=== PATIENT | female | born 1980 | race Caucasian/White ===

== ENCOUNTER 2023-10-23 20:51 | Emergency (ER) | payer OTHER, SELFPAY ==
[2023-10-23 20:51] VITALS: BMI 26.3
[2023-10-23 20:58] VITALS: BP 154/113
[2023-10-23 21:32] VITALS: BP 132/97
[2023-10-23] MEDS: NSS 1000 IV (21:46)
[2023-10-23 21:52] LABS: Hematocrit 40.1 % (37.0-47.0); Hemoglobin 14.5 g/dL (12.0-16.0); Mean Corp Hgb Conc. 36.2 g/dL (33.0-37.0); Mean Corpuscular Hgb 32.1 pg (27.0-31.0); Mean Corpuscular Volume 88.7 fL (81.0-99.0); Mean Platelet Volume 9.3 fL (7.4-10.4); Platelet Count 233 10^3/uL (130-400); Red Blood Cell Count 4.52 10^6/uL (4.20-5.40); Red Cell Dist. Width 13.8 % (11.5-14.5); White Blood Cell Count 7.8 10^3/uL (4.8-10.8)
[2023-10-23 22:03] LABS: HCG, Serum Qualitative Screen Negative
[2023-10-23 22:10] LABS: ALT (SGPT) 26 U/L (0-35); AST (SGOT) 46 U/L (14-36); Alkaline Phosphatase 82 U/L (38-126); Blood Urea Nitrogen 16 mg/dl (7-17); Calcium 8.9 mg/dl (8.4-10.2); Carbon Dioxide 25 mmol/L (22-30); Chloride 101 mmol/L (98-107); Glucose 110 mg/dl (70-99); Magnesium 1.8 mg/dl (1.6-2.3); Potassium 3.4 mmol/L (3.5-5.1); Sodium 141 mmol/L (135-145); Total Bilirubin 0.8 mg/dl (0.2-1.3); Total Protein 6.7 g/dl (6.3-8.2); eGFR > 60.00
[2023-10-23 22:27] LABS: Alcohol 347 mg/dl
--- NOTE | 2023-10-23 23:33 | ED.GENMED ---
History of Present Illness
General
Chief Complaint: Alcohol Problem
Source: patient
Exam Limitations: none
Time Seen by Provider: 10/23/23 21:14
Nursing documentation reviewed up to this point in time: agreed with
Travel History
Have you had any contact with someone who has COVID-19?: No
Do you have any symptoms of coronavirus? Fever > 100 degrees, chills, cough, shortness of breath, sore throat, loss of taste or smell, muscle aches, or headache?: No
History of Present Illness
History of Present Illness:
Patient presents to ED requesting evaluation for alcohol detox. Patient admits to having increased amount of alcohol consumption recently, including this afternoon. Denies suicidal or homicidal ideation. Denies abdominal pain. Denies nausea or
vomiting. Denies fever or chills. Denies recent illness.
Past History
Past History
ED Past Medical History: HTN and Psychiatric (Anxiety)
ED Past Surgical History: Other (Breast reduction)
Patient has exhibited threatening behavior?: No
Social History
Tobacco: Smoker
Alcohol: Chronic alcoholic (Vodka a pint)
Drug: None
Personal:
Living: with family
Employment: Employed
Review of Systems
Review of Systems
Allergies reviewed?: Yes
All Other Systems: ROS reviewed and negative except as documented in HPI and ROS
Constitutional: Reports no symptoms
EENT: Reports no symptoms
Respiratory: Reports no symptoms
Cardiac: Reports no symptoms
ABD/GI: Reports no symptoms; Denies nausea or vomiting
Musculoskeletal: Reports no symptoms
Skin: Reports no symptoms
Neurological: Reports no symptoms
Phy Exam
Physical Exam
Physical Exam:
Physical Exam
General: no apparent distress, not acutely ill. afebrile
Head: nc/at. eomi
Neck: supple. no meningeal signs.
Heart: tachycardic, no murmur. equal radial pulses.
Lungs: no acute respiratory distress. clear bilaterally
Abdomen: normal bowel sounds. not tender.
Neuro: alert and oriented. no focal neurological deficits
Skin: no rash
Psychiatric: well kept. interactive and cooperative
Extremities: no edema. no calf tenderness.
Scores
Withdrawal Assessment of Alcohol
Withdrawal Assessment Completed?: Yes
Nausea and Vomiting: No nausea and no vomiting
Tactile Disturbances: None
Tremor: No tremor
Auditory Disturbances: Not present
Paroxysmal Sweats: No sweat visible
Visual Disturbances: Not present
Anxiety: No anxiety, at ease
Headache, Fullness in Head: Not present
Agitation: Normal activity
Orientation and clouding of sensorium: Oriented and can do serial additions
Total CIWA Score: 0
Alcohol Withdrawal Medication Recommendation: Equal to MSAS Score 0-4. Monitor & re-assess q2hrs, NO MEDICATION NEEDED
Course
Orders/Labs/Results
Orders:
Orders
10/23/23 21:18
0.9% Sodium Chloride 1000 ml [Nss] 1,000 ml IV BOLUS
Test Result ONCE
10/23/23 21:41
Alcohol Urgent
Complete Blood Count/No Diff Urgent
Comprehensive Metabolic Panel Urgent
HCG, Serum Qualitative Screen Urgent
Magnesium Urgent
10/23/23 22:53
Potassium Chloride [KCl] 40 meq PO NOW STA
10/23/23 23:35
Lorazepam [Ativan] 1 mg .ROUTE .STK-MED ONE
10/23/23 23:36
Lorazepam [Ativan] 1 mg PO NOW STA
Abnormal Lab Results
10/23/23
21:41
MCH 32.1 H pg
(27.0-31.0)
Potassium 3.4 L mmol/L
(3.5-5.1)
Creatinine 0.5 L mg/dL
(0.6-1.0)
Glucose 110 H mg/dl
(70-99)
AST 46 H U/L
(14-36)
10/23/23 21:41
10/23/23 21:41
Vital Signs
Initial and Last Documented VS:
Initial Vital Signs
Temp Pulse Resp BP Pulse Ox
99.2 F 118 16 154/113 95
10/23/23 20:58 10/23/23 20:58 10/23/23 20:58 10/23/23 20:58 10/23/23 20:58
Last Documented Vital Signs
Temp Pulse Resp BP Pulse Ox
99.2 F 104 27 132/97 97
10/23/23 20:58 10/23/23 21:45 10/23/23 21:45 10/23/23 21:32 10/23/23 21:33
MDM/Problems Addressed
MDM/Problems Addressed:
Patient evaluated in ED by Zoë. Patient will be admitted to inpatient alcohol rehab tomorrow morning at 10 AM. Patient will be picked up by the facility at her residence tomorrow morning. Patient will be given 1 dose of Ativan, to be used at
home, to treat any withdrawal symptoms upon leaving ED. Patient otherwise is afebrile, hemodynamically stable, clinically sober, and without any distress at discharge.
*Critical Care Note
Total Time (30-74mins, 75-104mins- exclusive of procedures): Not Applicable
ED Attending Note
-
Portions of this chart may have been created with voice recognition software.� Occasional wrong word or��sound alike� substitutions may have occurred due to the inherent limitations of voice recognition software.
Discharge Plan
Departure
Patient Disposition: Home (Routine Discharge)
Date of Disposition: 10/23/23
Time of Disposition: 23:36
Patient with high blood pressure during this ER visit?: Yes
Condition: Fair
Discharge Problem:
Alcohol dependence
Instructions: Alcohol Use Disorder (DC)
Prescriptions:
No Action
thiamine HCl (vitamin B1) 100 mg tablet
100 mg PO DAILY
folic acid 1 mg tablet
1 mg PO DAILY
Referrals:
UNKNOWN - PT DOES,NOT KNOW [Family Provider] -
Activity Restrictions/Additional Instructions:
As discussed, please follow-up with rehab facility tomorrow morning as scheduled for further evaluation and treatment.
Interventions
Interventions:
*Risk Screen - Suicide Last Done: 10/23/23 20:58
*General Assessment Last Done: 10/23/23 20:58
*Neglect/Abuse Screening Last Done: 10/23/23 20:58
*Nursing Disposition Last Done: 10/24/23 00:11
ED- Neurological Assessment Last Done: 10/23/23 22:15
ED-Psychological Assessment Last Done: 10/23/23 22:15
Discharge Date and Time
Discharge Date/Time: 10/24/23 00:13
[2023-10-23] MEDS: KCL 40 MEQ PO (23:36)
[2023-10-23] MEDS: ATIVAN 1 MG PO (23:37)
== END 2023-10-24 00:13 | disposition home or self-care (01) ==
LOC: EMR 20:51
PROVIDERS: EMERGENCY PHYSICIAN Emergency Medicine
DX: F10.20 Alcohol dependence, uncomplicated (principal); I10 Essential (primary) hypertension; F17.200 Nicotine dependence, unspecified, uncomplicated
CPT/HCPCS: 99284; 96360; 96361; 80053; 82077; 83735; 84703; 85027